=== PATIENT | male | born 1975 | race Caucasian/White ===

== ENCOUNTER 2017-10-01 15:39 | Emergency (ER) | payer OTHER ==
[~2017-10-01] VITALS: Ht 177.8 cm; Wt 68.0 kg
[~2017-10-01 15:39] MED LIST: NKM
[2017-10-01 16:06] VITALS: BP 123/72
[2017-10-01 16:30] VITALS: BP 123/72
--- NOTE | 2017-10-01 21:29 | Emergency Room Report ---
History of Present Illness General Chief Complaint: General Complaint Source: Patient Present Illness HPI 41-year-old male presents ED for evaluation. Patient states that for the last 1 week he's noticed a swollen lymph node in his right inguinal area. Denies any pain. States that it comes and goes. States it started after he was doing some heavy lifting in the gym. Denies any nausea or vomiting. Denies any dysuria or discharge. Denies any scrotal pain. No other aggravating or relieving factors. Denies any other associated symptoms Allergies: Coded Allergies: No Known Allergies (Unverified , 12/18/12) Patient History Past Medical History: none Past Surgical History: none Pertinent Family History: none Social History: Denies: smoking, alcohol use, drug use Immunizations: UTD Reviewed Nursing Documentation: PMH: Agreed, PSxH: Agreed Nursing Documentation-PMH Past Medical History: No Stated History Review of Systems All Other Systems: negative except mentioned in HPI Physical Exam Vital Signs Date Time Temp Pulse Resp B/P (MAP) Pulse Ox O2 Delivery O2 Flow Rate FiO2 10/01/17 15:50 98.6 105 17 123/72 95 Room Air 98.6 Sp02 EP Interpretation: reviewed, normal General Appearance: no apparent distress, alert, GCS 15, non-toxic Head: normocephalic Eyes: bilateral eye normal inspection, bilateral eye PERRL ENT: normal ENT inspection Neck: normal inspection Respiratory: chest non-tender, lungs clear, normal breath sounds, speaking full sentences Cardiovascular #1: regular rate, rhythm, no edema Gastrointestinal: normal bowel sounds, non tender, soft, non-distended, no guarding, no rebound Rectal: deferred Genitourinary: no CVA tenderness, other - minimal R inguinal swelling. nontender. reducible Musculoskeletal: normal inspection Neurologic: alert, oriented x3, responsive, motor strength/tone normal, sensory intact, speech normal Psychiatric: normal inspection Skin: normal inspection Lymphatic: normal inspection Medical Decision Making Diagnostic Impression: Primary Impression: Inguinal pain Qualified Codes: R10.31 - Right lower quadrant pain ER Course Hospital Course 41-year-old male presents to ED complaining of inguinal swelling Differential diagnosis includes- inguinal hernia, lympahdenopathy, cellulitis/ abscess Clinical course Patient placed on stretcher. After initial history, physical exam reveals a male in no acute distress. On exam there is some noticeable right inguinal swelling when patient is standing up. When patient is laying flat the swelling is reduced. There is no nodular swelling noted. No pain. No erythema or induration. Scrotal exam unremarkable Discussed findings with patient. Likely inguinal hernia that is reducible at this time. No nausea or vomiting. No signs of obstruction. Unlikely lymphadenopathy given that there is no evidence of infection i.e. no scrotal pain, no discharge, no dysuria. I offered option of further workup including CAT scan. Patient declines. I believe that patient can continue workup as outpatient. I will provide him with surgical referral I feel this is a highly complex case requiring extensive working including EKG/ Rhythm strip, Xray/CT/US, Blood/urine lab work, repeat exams while in ED, and administration of strong opiates/narcotics for pain control, admission to hospital or close patient follow up. Diagnosis - inguinal pain Stable and discharged to home. Followup with PMD. Return to ED if symptoms recur or worsen Last Vital Signs Date Time Temp Pulse Resp B/P (MAP) Pulse Ox O2 Delivery O2 Flow Rate FiO2 10/01/17 16:30 98.6 99 17 123/72 95 Room Air 98.6 Status: improved Disposition: HOME, SELF-CARE Condition: Stable Referrals: [employer] [facility],REFERRING (PCP) Kingsley Gill Patient Instructions: Inguinal Hernia, Adult, [id number], Lymphadenopathy JAMARCUS MILLER M.D. Oct 01, 2017 21:29
== END 2017-10-01 16:30 | disposition home or self-care (01) ==
LOC: EMR 16:30
DX: R10.31 Right lower quadrant pain (principal); R19.03 Right lower quadrant abdominal swelling, mass and lump
CPT/HCPCS: 99282